=== PATIENT | male | born 1935 | race Asian ===

== ENCOUNTER 2020-05-30 20:27 | Emergency (ER) | payer MEDICARE, OTHER ==
[~2020-05-30] VITALS: Ht 152.4 cm; Wt 63.5 kg
[2020-05-30 22:02] LABS: Basophils # (auto) 0 10 ^3/uL (0-0.2); Basophils % (auto) 0.4 % (0.0-2.0); Eosinophils # (auto) 0.2 10 ^3/uL (0-0.8); Eosinophils % (auto) 1.9 % (0.0-7.0); Hematocrit 36.1 % (41.0-53.0); Hemoglobin 12.5 g/dL (13.5-17.5); Lymphocytes # (auto) 1.2 10 ^3/uL (0.4-5.4); Mean Corpuscular Hemoglobin 31.7 pg (28.0-32.0); Mean Corpuscular Hgb Conc. 34.7 g/dL (32.0-36.0); Mean Corpuscular Volume 91.2 fL (80.0-100.0); Monocytes # (auto) 0.7 10 ^3/uL (0-1.3); Monocytes % (auto) 8.3 % (0.0-12.0); Neutrophils # (auto) 6.4 10 ^3/uL (1.6-8.6); Neutrophils % (auto) 75.4 % (37.0-80.0); Platelet Count (auto) 159 10^3/uL (140-450); Red Blood Cells 3.96 10^6/uL (4.5-5.90); Red Cell Distribution Width 13.1 % (11.8-14.3); White Blood Cell 8.4 10^3/uL (4.4-10.8)
[2020-05-30 22:15] LABS: Alanine Aminotransferase 24 U/L (16-61); Albumin 3.8 g/dL (3.4-5.0); Anion Gap 5 (5-15); Blood Urea Nitrogen 15 mg/dL (7-18); Calcium 8.5 mg/dL (8.5-10.1); Carbon Dioxide 29 mmol/L (21-32); Chloride 101 mmol/L (98-107); Glucose 152 mg/dL (74-106); Potassium 4.2 mmol/L (3.5-5.1); Sodium 135 mmol/L (136-145)
[2020-05-30 22:19] LABS: INR 0.98 (0.9-1.15); Partial Thromboplastin Time 25.9 sec (23.0-31.2)
[2020-05-30 22:20] LABS: Alkaline Phosphatase 49 U/L (45-117); Aspartate Aminotransferase 26 U/L (15-37); Bilirubin, Total 0.6 mg/dL (0.2-1.0); GFR African American 78 mL/min; GFR Non-African American 65 mL/min; Total Protein 7.2 g/dL (6.4-8.2)
[2020-05-30 23:24] LABS: Urine Bacteria NONE SEEN /hpf (None Seen); Urine Blood Negative /uL (Negative); Urine Mucus FEW (None Seen); Urine Specific Gravity 1.011 (1.001-1.035); Urine WBC 1 /hpf (0 - 3)
[2020-05-31 03:36] VITALS: BP 111/74
== END 2020-05-31 03:55 | disposition home or self-care (01) ==
LOC: ER 20:27
DX: K29.00 Acute gastritis without bleeding (principal); R11.2 Nausea with vomiting, unspecified; E78.5 Hyperlipidemia, unspecified; I10 Essential (primary) hypertension
CPT/HCPCS: 36415; 71045; 80053; 81001; 83880; 84484; 85025; 85610; 85730; 93005

== ENCOUNTER 2021-03-24 07:48 | Day surgery (SDC) | payer MEDICARE, OTHER ==
[2021-03-20 12:01] LABS: Basophils # (auto) 0.1 10 ^3/uL (0-0.2); Basophils % (auto) 0.9 % (0.0-2.0); Eosinophils # (auto) 0.1 10 ^3/uL (0-0.8); Hematocrit 40.8 % (41.0-53.0); Hemoglobin 14.1 g/dL (13.5-17.5); Lymphocytes % (auto) 33.3 % (10.0-50.0); Mean Corpuscular Hgb Conc. 34.5 g/dL (32.0-36.0); Mean Corpuscular Volume 90.1 fL (80.0-100.0); Monocytes # (auto) 0.5 10 ^3/uL (0-1.3); Monocytes % (auto) 8.4 % (0.0-12.0); Neutrophils # (auto) 3.3 10 ^3/uL (1.6-8.6); Neutrophils % (auto) 56.4 % (37.0-80.0); Red Blood Cells 4.53 10^6/uL (4.5-5.90); Red Cell Distribution Width 13.6 % (11.8-14.3); White Blood Cell 5.9 10^3/uL (4.4-10.8)
[2021-03-20 12:55] LABS: Albumin 3.7 g/dL (3.4-5.0); Potassium 4.7 mmol/L (3.5-5.1)
[2021-03-20 13:00] LABS: BUN/Creatinine Ratio 15.8; Bilirubin, Total 0.5 mg/dL (0.2-1.0); Total Protein 7.6 g/dL (6.4-8.2)
[~2021-03-24] VITALS: Ht 152.4 cm; Wt 59.0 kg
[~2021-03-24 07:48] MED LIST: ARTIOIN6 OP; AZEL0.1S; FEXO-42 PO; FLUT1SPR5; GABA300C PO; HYDR-5192 EX; HYDR25TA5 PO; LEVOTAB51 PO; LIDO5DIS21 TOP; LORA10CA12 PO; LOSA25TA38 PO; MEM5T PO; NITR1SPR TL; PRAZ2CAP PO; SIMV-13 PO; TOLT2CAP PO
[2021-03-24] MEDS ORDERED: SODIUM CHLORIDE LOCK 10 ML ONE (09:09)
[2021-03-24] MEDS ORDERED: LIDOCAINE VISCOUS 2% 15ML UD ONE (09:09)
[2021-03-24] MEDS ORDERED: diphenhdrAMINE HCL 50 MG/1 ML VL ONE (09:10)
[2021-03-24] MEDS: fentaNYL CITRATE 100 MCG/2 ML VL ONE ×2 (11:04→11:08)
[2021-03-24] MEDS: MIDAZOLAM HCL 5 MG/ML-1ML VIAL ONE ×2 (11:04→11:08)
[2021-03-24 12:05] VITALS: BP 130/76
== END 2021-03-24 12:20 | disposition home or self-care (01) ==
LOC: GI 07:48
PROVIDERS: ATTEND Internal Medicine Gastroenterology
DX: R10.13 Epigastric pain (principal); K31.9 Disease of stomach and duodenum, unspecified; K31.89 Other diseases of stomach and duodenum; K44.9 Diaphragmatic hernia without obstruction or gangrene; E78.00 Pure hypercholesterolemia, unspecified; F17.200 Nicotine dependence, unspecified, uncomplicated; Z98.890 Other specified postprocedural states; Z20.822 Contact with and (suspected) exposure to COVID-19
CPT/HCPCS: 36415; 43239; 80053; 85025; 88305; 88342; J2250; J3010; J7030; U0003; G0500